=== PATIENT | female | born 1945 | race Caucasian/White ===

== ENCOUNTER 2018-01-03 06:35 | Emergency (ER) | payer OTHER, MEDICAID ==
[~2018-01-03] VITALS: Ht 157.5 cm; Wt 40.0 kg
[2018-01-03 06:53] VITALS: BP 132/70; PULSE 99; RESP 18; TEMP 98.1; O2SAT 100
--- NOTE | 2018-01-03 07:39 | RADRPT ---
EXAM DATE/TIME: 01/03/2018 07:22 [facility] COMPARISON: No previous studies available for comparison. INDICATIONS : Left proximal humerus pain, fell MEDICAL HISTORY : SURGICAL HISTORY : None. ENCOUNTER: Initial ACUITY: 1 month PAIN SCORE: 10 LOCATION: Left Humerus FINDINGS: Two view examination of the left humerus demonstrates no evidence of fracture or dislocation. Bony m ineralization is decreased. The soft tissue structures are intact. CONCLUSION: 1. No acute findings. Bones are osteopenic. Tex Dunham MD on January 03, 2018 at 7:37 Board Certified Radiologist. This report was verified electronically.
--- NOTE | 2018-01-03 07:41 | PD ---
HPI Chief Complaint: Fall Time Seen by Provider: 07:11 Travel History International Travel<30 days: No Contact w/Intl Traveler<30days: No Traveled to known affect area: No History of Present Illness HPI 72-year-old female presents [place] [facility] Report was that she hit her head on her oxygen tank. Patient notes an abrasion to her left arm and ever since her surgery she intermittently gets pain to her left hip. She states that she did not lose consciousness. She denies any other concurrent complaints to me but staff reports earlier she was complaining about her forehead. History is limited from patient and supplemented by staff. Report was fall was from standing position. PFSH Past Medical History COPD: Yes (2L NC) Dementia: Yes Respiratory: Yes (COPD) Tetanus Vaccination: Unknown Influenza Vaccination: No ?: Not Past Surgical History Other Surgery: Yes (LEFT HIP SURGERY ) Social History Alcohol Use: No Tobacco Use: No Substance Use: No Allergies-Medications (Allergen,Severity, Reaction): Coded Allergies: No Known Allergies (Verified Allergy, Unknown, 01/03/18) Review of Systems Except as stated in HPI: all other systems reviewed are Neg Physical Exam Narrative General: 72y/o patient in no apparent distress Skin: trauma noted to left arm with skin tear Eyes: Pupils equal NECK: no pain with range of motion in midline Cardiovascular: Regular rate and rhythm Respiratory: Normal respiratory effort noted, clear to auscultation bilaterally Abdomen: soft, nontender, nondistended Back: No step-offs, midline spine nontender with palpation Extremities: Pain with palpation of left mid upper arm and left lateral hip, no lacerations over, neurovascularly intact, no pain with palpation of other joints Neuro: awake, moves all extremities, clear speech Data Data Last Documented VS Vital Signs Date Time Temp Pulse Resp B/P (MAP) Pulse Ox O2 Delivery O2 Flow Rate FiO2 01/03/18 09:07 100 24 159/72 (101) 100 Nasal Cannula 2.00 01/03/18 06:[address] Brain W/O Iv Contrast(Rout) (01/03/18 ) Humerus (Min 2vws) (01/03/18 ) Femur (Ap & Lat/2vws) (01/03/18 ) Ct Cerv Spine W/O Contrast (01/03/18 ) Ed Discharge Order (01/03/18 09:12) [facility] Medical Decision Making Medical Screen Exam Complete: Yes Emergency Medical Condition: Yes Medical Record Reviewed: Yes (Past history confirmed) Interpretation(s) Last 24 hours Impressions Humerus X-Ray 01/03/18 0000 Signed Impressions: Service Date/Time: December 07:22 - CONCLUSION: 1. No acute findings. Bones are osteopenic. Tex Dunham MD Head CT 01/03/18 0000 Signed Impressions: Service Date/Time: December 08:00 - CONCLUSION: No evidence of acute infarct, hemorrhage, mass or edema. No evidence of acute trauma. Patricio Corral MD Femur X-Ray 01/03/18 0000 Signed Impressions: Service Date/Time: December 07:24 - CONCLUSION: 1. Fixation proximal left femur across a subtrochanteric fracture. Osteopenia. Tex Dunham MD Cervical Spine CT 01/03/18 0000 Signed Impressions: Service Date/Time: December 08:00 - CONCLUSION: Degenerative changes and mild-moderate C4-5 spondylolisthesis. No evidence of acute bony injury Adam Monreal MD Differential Diagnosis Fracture, strain, bleed Narrative Course We will check trauma imaging and reevaluate. Patient is in agreement to plan ed workup no emergent process, patient denies new complaints. She will be sent back with return instructions. Diagnosis Primary Impression: Fall Qualified Codes: W19.XXXA - Unspecified fall, initial encounter Additional Impression: Left arm pain Patient Instructions: General Instructions Additional Instructions: tylenol as needed, follow with primary sunday for recheck, return as needed Med/Other Pt SpecificInfo: No Change to Meds Disposition: 03 DISCHARGE TO SNF Condition: Stable Mindy Rivera MD Jan 03, 2018 07:41
--- NOTE | 2018-01-03 07:49 | RADRPT ---
EXAM DATE/TIME: 01/03/2018 07:24 [facility] COMPARISON: No previous studies available for comparison. INDICATIONS : Left proximal femur pain, fell MEDICAL HISTORY : None. SURGICAL HISTORY : None. ENCOUNTER: Initial ACUITY: 1 month PAIN SCORE: 2/10 LOCATION: Left Femur FINDINGS: Two view examination of the left femur demonstrates agata and screw fixation of the proximal left femur . Bones are osteopenic. CONCLUSION: 1. Fixation proximal left femur across a subtrochanteric fracture. Osteopenia. Tex Dunham MD on January 03, 2018 at 7:47 Board Certified Radiologist. This report was verified electronically.
--- NOTE | 2018-01-03 08:11 | RADRPT ---
EXAM DATE/TIME: 01/03/2018 08:00 [facility] COMPARISON: No previous studies available for comparison. INDICATIONS : Patient fell and hit head. RADIATION DOSE: 56.35 CTDIvol (mGy) MEDICAL HISTORY : Dementia. Chronic obstructive pulmonary disease. SURGICAL HISTORY : Lef hip surgery ENCOUNTER: Initial ACUITY: 1 day PAIN SCALE: 4/10 LOCATION: cranial TECHNIQUE: Multiple contiguous axial images were obtained of the head. Using automated exposure control and adj ustment of the mA and/or kV according to patient size, radiation dose was kept as low as reasonably a chievable to obtain optimal diagnostic quality images. DICOM format image data is available electro nically for review and comparison. FINDINGS: CEREBRUM: The ventricles are normal for age. No evidence of midline shift, mass lesion, hemorrhage or acute in farction. No extra-axial fluid collections are seen. POSTERIOR FOSSA: The cerebellum and brainstem are intact. The 4th ventricle is midline. The cerebellopontine angle i s unremarkable. EXTRACRANIAL: The visualized portion of the orbits is intact. SKULL: The calvaria is intact. No evidence of skull fracture. CONCLUSION: No evidence of acute infarct, hemorrhage, mass or edema. No evidence of acute trauma. Patricio Corral MD on January 03, 2018 at 8:08 Board Certified Radiologist. This report was verified electronically.
--- NOTE | 2018-01-03 08:56 | RADRPT ---
EXAM DATE/TIME: 01/03/2018 08:00 1 [facility] COMPARISON: No previous studies available for comparison. INDICATIONS : Patient fell and hit head, neck pain. RADIATION DOSE: 9.1 CTDIvol (mGy) MEDICAL HISTORY : Dementia. Chronic obstructive pulmonary disease. SURGICAL HISTORY : Left hip surgery ENCOUNTER: Initial ACUITY: 1 day PAIN SCALE: 4/10 LOCATION: neck TECHNIQUE: Volumetric scanning of the cervical spine was performed. Multiplanar reconstructions in the sagittal, coronal and oblique axial planes were performed. Using automated exposure control and adjustment o f the mA and/or kV according to patient size, radiation dose was kept as low as reasonably achievable to obtain optimal diagnostic quality images. DICOM format image data is available electronically f or review and comparison. FINDINGS: There is approximately 3 mm of anterior subluxation of C4 relative to C5. The alignment is otherwise satisfactory. There is no evidence of fracture. There is severe degenerative arthritic change with di sc space narrowing and endplate osteophyte formation most significantly at C5-6 and severe posterior facet arthropathy most notably at C3-4 and C4-5 levels. There is no evidence of bony canal or foramin al compromise. There is no evidence of paraspinal hematoma. CONCLUSION: Degenerative changes and mild-moderate C4-5 spondylolisthesis. No evidence of acute bony injury Adam Monreal MD on January 03, 2018 at 8:42 Board Certified Radiologist. This report was verified electronically.
[2018-01-03 09:07] VITALS: BP 159/72; PULSE 100; RESP 24; O2SAT 100
== END 2018-01-03 14:05 ==
LOC: NEPE 06:35 → NEDAMB 14:05
DX: M79.602 Pain in left arm (principal); M43.12 Spondylolisthesis, cervical region; M85.852 Other specified disorders of bone density and structure, left thigh; M85.822 Other specified disorders of bone density and structure, left upper arm; J44.9 Chronic obstructive pulmonary disease, unspecified; F03.90 Unspecified dementia, unspecified severity, without behavioral disturbance, psychotic disturbance, mood disturbance, and anxiety
CPT/HCPCS: 70450; 72125; 73060; 73552; 99284